=== PATIENT | female | born 1970 | race Caucasian/White ===

== ENCOUNTER 2023-08-24 10:46 | Emergency (ER) | payer BC ==
[~2023-08-24] VITALS: Ht 172.7 cm; Wt 64.9 kg
[2023-08-24] MEDS ORDERED: ONDANSETRON HCL/PF 4 MG/2 ML VIAL ONE (11:32)
[2023-08-24] MEDS: ONDANSETRON HCL/PF 4 MG/2 ML VIAL IVP ONE (11:36)
[2023-08-24] MEDS: IV NS 0.9% 1,000 ML BAG IV ONE (11:36)
[2023-08-24] MEDS ORDERED: IOHEXOL-300 100 ML VIAL IV ONE (11:41)
[2023-08-24] MEDS ORDERED: IV NS 0.9% 250 ML IV ONE (11:41)
[2023-08-24 11:50] LABS: BASOPHILS % (AUTO) 0.8 % (0.0-2.0); EOSINOPHILS # (AUTO) 0.1 K/uL (0.0-0.7); EOSINOPHILS % (AUTO) 1.2 % (0.0-6.0); HEMATOCRIT 38 % (33-45); HEMOGLOBIN 12.7 g/dL (11.5-14.8); LYMPHOCYTES # (AUTO) 1.7 K/uL (0.8-4.8); LYMPHOCYTES % (AUTO) 30.8 % (20.0-44.0); MEAN CORPUSCULAR HEMOGLOBIN 30 PG (26.0-33.0); MEAN CORPUSCULAR HGB CONC 34 g/dl (31.0-36.0); MEAN CORPUSCULAR VOLUME 87 fL (82-100); MONOCYTES # (AUTO) 0.5 K/uL (0.1-1.30); MONOCYTES % (AUTO) 8.5 % (2.0-12.0); NEUTROPHILS # (AUTO) 3.1 K/uL (1.8-8.9); NEUTROPHILS % (AUTO) 58.7 % (43.0-81.0); PLATELET COUNT (AUTO) 327 K/uL (150-450); RED BLOOD CELL COUNT(AUTO) 4.32 MIL/uL (4.0-5.2); RED CELL DISTRIBUTION WIDTH 13.6 % (11.5-15.0); WHITE BLOOD COUNT (AUTO) 5.4 K/uL (4.3-11.0)
[2023-08-24 12:00] LABS: INR 1.1 (0.91-1.10); PARTIAL THROMBOPLASTIN TIME 35.3 SEC (24.3-34.3); PROTHROMBIN TIME 11.6 SECS (9.2-11.1)
[2023-08-24 12:01] LABS: ALANINE AMINOTRANSFERASE 26 U/L (12-78); ALBUMIN 3.3 g/dL (3.4-5.0); ALKALINE PHOSPHATASE 74 U/L (46-116); ASPARTATE AMINOTRANSFERASE 15 U/L (15-37); BILIRUBIN,DIRECT 0.2 mg/dL (0.0-0.2); BILIRUBIN,TOTAL 0.6 mg/dL (0.2-1.0); CALCIUM, SERUM 9.8 mg/dL (8.5-10.1); CARBON DIOXIDE 22 mmol/L (21-32); CHLORIDE 105 mmol/L (98-107); GLUCOSE 93 mg/dL (74-106); POTASSIUM 3.7 mmol/L (3.5-5.1); SODIUM SERUM 141 mmol/L (136-145); TOTAL PROTEIN, SERUM 7.5 g/dL (6.4-8.2); UREA NITROGEN, BLOOD 9 mg/dL (7-18)
[2023-08-24] MEDS ORDERED: METOCLOPRAMIDE HCL 10 MG/2 ML VIAL ONE (13:26)
[2023-08-24] MEDS: METOCLOPRAMIDE HCL 10 MG/2 ML VIAL IV ONE (13:32)
[2023-08-24] MEDS ORDERED: PROM25SU10 RC (14:15)
[2023-08-24] MEDS ORDERED: LORA-258 PO (14:15)
[2023-08-24 14:25] VITALS: BP 115/73; TEMP 98.4; O2SAT 99
== END 2023-08-24 14:25 | disposition home or self-care (01) ==
LOC: ER 11:01
DX: R11.2 Nausea with vomiting, unspecified (principal); J18.9 Pneumonia, unspecified organism
CPT/HCPCS: 99285; 71260; 96374; 71045; 96361; 96375; 93005; 87804 ×2; 74177; 84145; 85025; 80048; 87040 ×2; 83605; 80076; 85378; 36415; 84484; 85730; J2765; J2405; J7030; J7050; Q9967